=== PATIENT | female | born 1980 | race Caucasian/White ===

== ENCOUNTER → 2017-06-26 | Outpatient (CLI) | payer BC ==
[~2017-06-26] MED LIST: ALPR2TAB2 PO; CYCL10TA9 PO; DESV50TA PO; IBUPROFEN; NAPR-243 PO; ONDN4T PO; PENI500T PO; TRM50T PO; XANAX
--- NOTE | 2017-06-26 13:39 | Diagnostic Imaging Report ---
PROCEDURE: US Gallbladder. TECHNIQUE: Multiple real-time grayscale images were obtained over the right upper quadrant in various projections. INDICATION: Right upper quadrant pain. COMPARISON: There are no previous studies available for comparison. FINDINGS: There is no evidence for cholelithiasis or acute cholecystitis, and the common bile duct is not dilated. The liver and right kidney are unremarkable. The pancreas and the proximal aorta were scattered by bowel gas. IMPRESSION: 1. There is no evidence for an acute abnormality of the right upper quadrant. 2. If clinical concern regarding an underlying abnormality of the gallbladder persists and further imaging is desired, then a nuclear medicine hepatobiliary scan would be recommended. Dictated by: Dictated on workstation # [id number]
== END ==
LOC: RAD 09:56
PROVIDERS: ATTEND Family Medicine
DX: R10.11 Right upper quadrant pain (principal)
CPT/HCPCS: 76705